=== PATIENT | male | born 1945 | race Caucasian/White ===

== ENCOUNTER 2017-11-24 10:06 | Observation (INO) | payer OTHER ==
[2017-11-24] MEDS ORDERED: Nitroglycerin 2% OINT* 1 GM PAK TOPICAL ONE (10:24)
[2017-11-24] MEDS ORDERED: Aspirin 81 mg CHEW TAB* 81 MG TAB.CHEW PO ONE (10:24)
[2017-11-24 10:57] LABS: ABS Basophils 0 10^3/ul (0-0.2); ABS Eosinophils 0.1 10^3/ul (0-0.6); ABS Lymphocytes 1.1 10^3/ul (1.0-4.8); ABS Monocytes 1.1 10^3/ul (0-0.8); ABS Neutrophils 5.6 10^3/ul (1.5-7.7); ABS Nucleated RBC 0 10^3/ul; Hematocrit 40 % (42-52); Hemoglobin 13.4 g/dl (14.0-18.0); Lymphocyte % 14.2 % (25-47); Mean Corpuscular HGB Conc 34 g/dl (31-36); Mean Corpuscular Hemoglobin 30 pg (27-31); Mean Corpuscular Volume 89 fL (80-94); Mean Platelet Volume 7.7 um3 (7.4-10.4); Nucleated Red Blood Cells % 0.2; Platelet Count 199 10^3/ul (150-450); Red Blood Count 4.45 10^6/ul (4.0-5.4); Red Cell Distribution Width 14 % (10.5-15); White Blood Count 7.9 10^3/ul (3.5-10.8)
[2017-11-24 11:14] LABS: INR 1.02 (0.77-1.02)
--- NOTE | 2017-11-24 11:26 | RAD ---
HISTORY: Chest pain COMPARISONS: None VIEWS: 1: frontal portable view of the chest at 10:40 AM FINDINGS: LINES AND TUBES: None. CARDIOMEDIASTINAL SILHOUETTE: The cardiac silhouette is mildly enlarged. The cardiomediastinal silhouette is otherwise normal for portable technique. PLEURA: The costophrenic angles are sharp. No pleural abnormalities are noted. LUNG PARENCHYMA: The lungs are clear. ABDOMEN: The upper abdomen is clear. There is no subphrenic gas. BONES AND SOFT TISSUES: The patient is status post median sternotomy. IMPRESSION: MILD CARDIOMEGALY. NO ACTIVE CARDIOPULMONARY DISEASE.
[2017-11-24] MEDS ORDERED: Perflutren Lipid Microsphere* 3 ML VIAL ONE (11:45)
[2017-11-24] MEDS ORDERED: Iodixanol* (CONTRAST) 320 MG/ML 100 ML SDV IV ONE (12:07)
[2017-11-24] MEDS ORDERED: oxyCODONE/Acetamin 5/325 MG* TAB PO ONE (12:41)
--- NOTE | 2017-11-24 12:50 | ECHO ---
Patient: KYLAH FOURNIER [facility] Rec#: [id number] : 1945 Date: 11/24/2017 Age: 72y Height: 170.18 cm / 67.0 in Weight: 90.72 kg / 199.9 lbs Sex: M BSA: 2.02 Room#: ED 15 Admit Date#: 11/24/2017 Type: Inpatient Referring: Alan Kramer Reading: Angela Calvillo MD Cartridge Loading Operator: Fransisca Giles RDCS,RDMS CC: Saurabh Chirinos MD Transthoracic Echocardiogram Indication: CP, SOB BP: 116/58 HR: 72 Rhythm: NSR Findings History: Recent CABG, CAD, PCI, DM Technical Comments: The study quality is fair. Left Ventricle: The left ventricular chamber size is normal. Mild concentric left ventricular hypertrophy is observed. The estimated ejection fraction is 55-60%. Short axis view with echo contrast shows mild relative hypokinesis at the base of the posterior/inferior wall. Ventricular septal wall motion has a post-operative appearance. Abnormal left ventricular diastolic filling is observed, consistent with impaired relaxation. Left Atrium: The left atrium is slightly dilated. Right Ventricle: The right ventricular cavity size is normal. The right ventricular global systolic function is mildly reduced. Right Atrium: The right atrium is slightly dilated. Aortic Valve: The aortic valve is trileaflet. Systolic excursion of the aortic valve is normal. There is a trace of aortic regurgitation. There is no evidence of aortic stenosis. Mitral Valve: The mitral valve leaflets appear normal. There is no evidence of mitral regurgitation. There is no evidence of mitral stenosis. Tricuspid Valve: The tricuspid valve leaflets are normal. There is trace tricuspid regurgitation. Unable to estimate the right ventricular systolic pressure. Pulmonic Valve: The pulmonic valve appears normal. There is a trace pulmonic regurgitation. Pericardium: There is no significant pericardial effusion. A pericardial fat pad is visualized. Aorta: The aortic root appears normal. There is no dilatation of the aortic arch. Pulmonary Artery: The main pulmonary artery appears normal. Venous: The inferior vena cava appears normal in size. There is a greater than 50% respiratory change in the inferior vena cava dimension. Contrast: Definity was used to optimize study. A total of 4 ml was used Conclusions Mild concentric left ventricular hypertrophy is observed. The estimated ejection fraction is 55-60%. Short axis view with echo contrast shows mild relative hypokinesis at the base of the posterior/inferior wall. Septum c/w prior CABG. Abnormal left ventricular diastolic filling is observed, consistent with impaired relaxation. The right ventricular global systolic function is mildly reduced. All valves show good function. There is no significant pericardial effusion. Prior echos not available for comparison. Measurements Name Value Normal Range RVIDd (AP) 2D 2.5 cm (0.9 - 2.6) RAd ISD 4CH 5.5 cm (3.4 - 4.9) RA (A4C)W 3.9 cm (2.9 - 4.6) IVSd (2D) 1.2 cm (0.6 - 1) LVPWd (2D) 1.3 cm (0.6 - 1) LVIDd (2D) 4.6 cm (3.6 - 5.4) LVIDs (2D) 3.1 cm - LV FS (2D) 33 % (25 - 45) Aortic Annulus 2 cm (1.4 - 2.6) Ao root diameter (2D) 3.4 cm (2.1 - 3.5) Ascending Ao 3.2 cm (2.1 - 3.4) Aortic arch 2.9 cm (1.8 - 3.4) LA dimension (AP) 2D 3.8 cm (2.3 - 3.8) LAd ISD 4CH 5.5 cm (2.9 - 5.3) LA ISD 4CH W 3.8 cm (2.5 - 4.5) Name Value Normal Range LA ESV SP 4CH (A/L) 56.2 ml - LA ESV SP 2CH (A/L) 76.82 ml - LA ESV BP (A/L) 68.99 ml - LA ESV BP (A/L) index 34 ml/m2 - LA ESV SP 4CH (MOD) 52.11 ml - LA ESV SP 2CH (MOD) 69.98 ml - Name Value Normal Range MV E-wave Vmax 0.7 m/sec - MV deceleration time 220 msec - MV A-wave Vmax 0.8 m/sec - MV E:A ratio 0.8 ratio - LV septal e' Vmax 0.05 m/sec - LV lateral e' Vmax 0.08 m/sec - LV E:e' septal ratio 14 ratio - LV E:e' lateral ratio 9 ratio - Name Value Normal Range AV Vmax 1.2 m/sec - AV VTI 24.4 cm - AV peak gradient 6 mmHg - AV mean gradient 3.4 mmHg - LVOT Vmax 0.8 m/sec - LVOT VTI 15.69 cm - LVOT peak gradient 2.7 mmHg - LVOT mean gradient 1.2 mmHg - ANN Vmax 0.6 m/sec - Name Value Normal Range RAP 8 mmHg - IVC diameter 1.8 cm - Name Value Normal Range PV Vmax 0.6 m/sec - PV peak gradient 1.4 mmHg -
--- NOTE | 2017-11-24 13:05 | RAD ---
STUDY: CT angiography of the chest, abdomen and pelvis. INDICATION: Sharp chest pain in a patient with a history of triple bypass surgery in September 2017. Relevant surgical history also includes hernia repair and "back surgery". COMPARISON: None. TECHNIQUE: Multidetector CT angiography of the chest, abdomen and pelvis were obtained from the lung apices to the ischial tuberosities after the intravenous injection of 100 mL Visipaque 320. Reformats were created in the coronal and sagittal planes. 3-D vascular imaging was created from the source images and reviewed as well. ANGIOGRAPHIC FINDINGS: Measured at the level of the right pulmonary artery, the ascending thoracic aorta measures 3.1 cm in diameter and the descending thoracic aorta measures 2.2 cm in diameter. The aorta does not exhibit any pathologic aneurysmal dilatation or signs of dissection. There is calcified atherosclerosis at the infrarenal abdominal aorta extending into the bilateral common iliac arteries. Incidentally noted at the arch of the aorta is a left vertebral artery that branches directly off of the arch. The anastomosis of the left internal mammary artery for the patient's coronary artery bypass graft appears to be patent at its proximal portion. More distally within the pericardium the bypass vessel appears to fill with contrast. There are no centrilobular filling defects of the central or proximal lobar pulmonary arteries to indicate large pulmonary embolus. This study is inadequate to densely discern filling defects in the more distal lobar and segmental pulmonary arterial branches. NON ANGIOGRAPHIC FINDINGS: Chest: There are hypoventilatory changes of the bilateral lung bases with linear densities consistent with atelectasis. There is trace pleural effusion at the bilateral dependent lower lobes. The lungs are otherwise clear. There is no mediastinal or hilar lymphadenopathy. The heart is grossly normal in appearance. Abdomen & Pelvis: The liver, spleen, pancreas and adrenal glands are grossly normal in appearance. The gallbladder is normal. Low-density foci in the kidneys are consistent with a benign cyst. Otherwise the kidneys are normal in appearance without focal mass, calcification or signs of hydronephrosis. The renal cortices enhance promptly and symmetrically on arterial phase imaging. Evaluation of the gastrointestinal tract is limited without oral contrast. The small and large bowel are not distended. The appendix is normal in appearance measuring 5 mm in diameter (axial image 208). There are distal colonic diverticula becoming more concentrated at the sigmoid colon without signs of acute inflammatory change characteristic of acute diverticulitis.. There is no gross retroperitoneal or mesenteric lymphadenopathy. There are small bilateral fat-containing inguinal hernias. Sternotomy wires are noted. Mild degenerative changes of the thoracic and lumbar spine includes loss of intervertebral disc height. Degenerative changes are most severe at L4/L5 where there is vacuum disc phenomenon. The patient appears to be status post laminectomy at the L3 and L4 levels. IMPRESSION: 1. No CT evidence of acute aortic pathology including pathologic aneurysmal or aortic dissection. 2. There are no centrilobular filling defects to indicate pulmonary embolism. 3. There are trace pleural effusions of doubtful clinical significance. 4. Diverticulosis without acute inflammatory changes consistent with diverticulitis. 5. Chronic, degenerative and postsurgical changes as described above including left internal mammary artery bypass graft surgery.
[2017-11-24] MEDS ORDERED: Ondansetron INJ* 2 MG/ML VIAL IV PRN (13:45)
[2017-11-24] MEDS ORDERED: Ibuprofen TAB* 600 MG PO PRN (13:45)
[2017-11-24] MEDS ORDERED: Ketorolac INJ* 30 MG/ML 1 ML VIAL IV PUSH ONE (13:45)
[2017-11-24] MEDS ORDERED: Dextrose 50% Syringe 50 ML* 25 GM/50 ML SYRINGE IV PUSH PRN (13:45)
[2017-11-24] MEDS ORDERED: Zolpidem TAB* 5 MG PO PRN (13:48)
[2017-11-24] MEDS: Colchicine* 0.6 MG TAB PO SCH ×2 (14:16→22:35)
--- NOTE | 2017-11-24 17:04 | ED ---
Lee Ann Beauchamp Julia, scribed for Alan Kramer on 11/24/17 at 1021 . HPI Chest Pain - HPI Summary HPI Summary: This patient is a year old M presenting to [facility] with a chief complaint of sharp mid-sternal chest pain radiating into the back since 10:30 last night. He reports a constant dull chest pain that is worsening by taking breaths that causes sharp pain to radiate into his neck. Patient reports nausea. Patient denies vomiting and dizziness. The patient rates the pain 6/10 in severity, but with movement or deep breath is 9/10. Patient had a recent bypass surgery in September 2017 at [facility]. He states he has not had any significant pain since the surgery. - History of Current Complaint Chief Complaint: EDChestPainROMI Time Seen by Provider: 11/24/17 10:13 Hx Obtained From: Patient Onset/Duration: Started Hours Ago, Still Present Time of Onset: 10:30 Timing: Constant Pain Intensity: 9 Pain Scale Used: 0-10 Numeric Chest Pain Location: Mid Sternal Chest Pain Radiates: Yes Chest Pain Radiates To:: Neck - with breaths Character: Other: - sharp Aggravating Factor(s): Movement, Deep Breaths Associated Signs and Symptoms: Positive: Chest Pain, Nausea. Negative: Dizziness, Vomiting Related History: Recent Trauma - recent surgery - Allergy/Home Medications Allergies/Adverse Reactions: Allergies Allergy/AdvReac Type Severity Reaction Status Date / Time Sulfa (Sulfonamide Allergy Rash Verified 11/24/17 10:52 Antibiotics) Home Medications: Home Medications Aspirin EC Low Dose* [Ecotrin EC Low Dose 81 MG*] 81 mg PO DAILY 11/24/17 [ History Confirmed 11/24/17] Atorvastatin* [Lipitor*] 80 mg PO DAILY 11/24/17 [History Confirmed 11/24/17] Clopidogrel TAB* [Plavix TAB*] 75 mg PO DAILY 11/24/17 [History Confirmed ] Finasteride TAB* [Proscar TAB*] 5 mg PO DAILY 11/24/17 [History Confirmed ] Metoprolol Tartrate TAB* [Lopressor TAB*] 25 mg PO BID 11/24/17 [History Confirmed 11/24/17] Multivitamins/Minerals TAB* [Theragran/minerals TAB*] 1 tab PO DAILY 11/24/17 [ History Confirmed 11/24/17] Oxybutynin TAB* [Ditropan TAB*] 5 mg PO DAILY 11/24/17 [History Confirmed ] Pantoprazole TAB (NF) [Protonix TAB (NF)] 40 mg PO DAILY 11/24/17 [History Confirmed 11/24/17] Saxagliptin HCl (Nf) [Onglyza (NF)] 2.5 mg PO DAILY 11/24/17 [History Confirmed 11/24/17] Zolpidem TAB* [Ambien TAB*] 5 mg PO BEDTIME PRN 11/24/17 [History Confirmed ] PMH/Surg Hx/FS Hx/Imm Hx Endocrine/Hematology History: Reports: Hx Diabetes Cardiovascular History: Reports: Hx Coronary Artery Disease - Surgical History Surgery Procedure, Year, and Place: bypass surgery, September 2017, [facility] Infectious Disease History: No Infectious Disease History: Denies: Traveled Outside the [place] in Last 30 Days - Social History Lives: With Family Hx Tobacco Use: No Smoking Status (MU): Never Smoked Tobacco Review of Systems Positive: Chest Pain Positive: Nausea. Negative: Vomiting Neurological: Negative - dizziness All Other Systems Reviewed And Are Negative: Yes Physical Exam - Summary Physical Exam Summary: Appearance: Well appearing, no pain distress Skin: warm, dry, reflects adequate perfusion Head/face: normal Eyes: EOMI, MARION ENT: normal Neck: supple, non-tender Respiratory: CTA, breath sounds present Cardiovascular: RRR, pulses symmetrical Abdomen: non-tender, soft Bowel: present Musculoskeletal: strength/ROM intact, l chest tenderness Neuro: normal, sensory motor intact, A&Ox3 Triage Information Reviewed: Yes Vital Signs On Initial Exam: Initial Vitals Temp Pulse Resp BP Pulse Ox 97.0 F 75 20 123/73 100 11/24/17 10:07 11/24/17 10:07 11/24/17 10:07 11/24/17 10:07 11/24/17 10:07 Vital Signs Reviewed: Yes Diagnostics - Vital Signs Vital Signs Temp Pulse Resp BP Pulse Ox 11/24/17 10:07 97.0 F 75 20 123/73 100 - Laboratory Lab Results: Lab Results 11/24/17 11/24/17 11/24/17 Range/Units 10:30 10:30 10:30 WBC 7.9 (3.5-10.8) 10^3/ul RBC 4.45 (4.0-5.4) 10^6/ul Hgb 13.4 L (14.0-18.0) g/dl Hct 40 L (42-52) % MCV 89 (80-94) fL MCH 30 (27-31) pg MCHC 34 (31-36) g/dl RDW 14 (10.5-15) % Plt Count 199 (150-450) 10^3/ul MPV 7.7 (7.4-10.4) um3 Neut % (Auto) 70.8 (38-83) % Lymph % (Auto) 14.2 L (25-47) % [place] % (Auto) 13.4 H (0-7) % Eos % (Auto) 1.0 (0-6) % Baso % (Auto) 0.6 (0-2) % Absolute Neuts (auto) 5.6 (1.5-7.7) 10^3/ul Absolute Lymphs (auto) 1.1 (1.0-4.8) 10^3/ul Absolute Monos (auto) 1.1 H (0-0.8) 10^3/ul Absolute Eos (auto) 0.1 (0-0.6) 10^3/ul Absolute Basos (auto) 0 (0-0.2) 10^3/ul Absolute Nucleated RBC 0 10^3/ul Nucleated RBC % 0.2 ESR 14 (0-40) mm/Hr INR (Anticoag Therapy) 1.02 (0.77-1.02) APTT 21.7 L (26.0-36.3) seconds Sodium (139-145) mmol/L Potassium (3.5-5.0) mmol/L Chloride (101-111) mmol/L Carbon Dioxide (22-32) mmol/L Anion Gap (2-11) mmol/L BUN (6-24) mg/dL Creatinine (0.67-1.17) mg/dL Est GFR ( Amer) (>60) Est GFR (Non-Af Amer) (>60) BUN/Creatinine Ratio (8-20) Glucose (70-100) mg/dL Lactic Acid (0.5-2.0) mmol/L Calcium (8.6-10.3) mg/dL Total Bilirubin (0.2-1.0) mg/dL AST (13-39) U/L ALT (7-52) U/L Alkaline Phosphatase (34-104) U/L Troponin I (<0.04) ng/mL C-Reactive Protein (< 5.00) mg/L B-Natriuretic Peptide 152 H ( - 100) pg/mL Total Protein (6.4-8.9) g/dL Albumin (3.2-5.2) g/dL Globulin (2-4) g/dL Albumin/Globulin Ratio (1-3) 11/24/17 11/24/17 Range/Units 10:30 10:30 WBC (3.5-10.8) 10^3/ul RBC (4.0-5.4) 10^6/ul Hgb (14.0-18.0) g/dl Hct (42-52) % MCV (80-94) fL MCH (27-31) pg MCHC (31-36) g/dl RDW (10.5-15) % Plt Count (150-450) 10^3/ul MPV (7.4-10.4) um3 Neut % (Auto) (38-83) % Lymph % (Auto) (25-47) % [place] % (Auto) (0-7) % Eos % (Auto) (0-6) % Baso % (Auto) (0-2) % Absolute Neuts (auto) (1.5-7.7) 10^3/ul Absolute Lymphs (auto) (1.0-4.8) 10^3/ul Absolute Monos (auto) (0-0.8) 10^3/ul Absolute Eos (auto) (0-0.6) 10^3/ul Absolute Basos (auto) (0-0.2) 10^3/ul Absolute Nucleated RBC 10^3/ul Nucleated RBC % ESR (0-40) mm/Hr INR (Anticoag Therapy) (0.77-1.02) APTT (26.0-36.3) seconds Sodium 138 L (139-145) mmol/L Potassium 4.0 (3.5-5.0) mmol/L Chloride 103 (101-111) mmol/L Carbon Dioxide 25 (22-32) mmol/L Anion Gap 10 (2-11) mmol/L BUN 11 (6-24) mg/dL Creatinine 0.74 (0.67-1.17) mg/dL Est GFR ( Amer) 133.7 (>60) Est GFR (Non-Af Amer) 104.0 (>60) BUN/Creatinine Ratio 14.9 (8-20) Glucose 152 H (70-100) mg/dL Lactic Acid 1.1 (0.5-2.0) mmol/L Calcium 9.4 (8.6-10.3) mg/dL Total Bilirubin 0.90 (0.2-1.0) mg/dL AST 12 L (13-39) U/L ALT 13 (7-52) U/L Alkaline Phosphatase 72 (34-104) U/L Troponin I 0.00 (<0.04) ng/mL C-Reactive Protein 26.83 H (< 5.00) mg/L B-Natriuretic Peptide ( - 100) pg/mL Total Protein 7.0 (6.4-8.9) g/dL Albumin 4.3 (3.2-5.2) g/dL Globulin 2.7 (2-4) g/dL Albumin/Globulin Ratio 1.6 (1-3) Result Diagrams: 11/24/17 10:30 11/24/17 10:30 Lab Statement: Any lab studies that have been ordered have been reviewed, and results considered in the medical decision making process. - Radiology CXR Radiology Interpretation Completed By: Radiologist - MILD CARDIOMEGALY. NO ACTIVE CARDIOPULMONARY DISEASE. ED Physician has reviewed this report. - CT Chest/A/P CT Interpretation Completed By: Radiologist - 1. No CT evidence of acute aortic pathology including pathologic aneurysmal or aortic dissection. 2. There are no centrilobular filling defects to indicate pulmonary embolism. 3. There are trace pleural effusions of doubtful clinical significance. 4. Diverticulosis without acute inflammatory changes consistent with diverticulitis. 5. Chronic, degenerative and postsurgical changes as described above including left internal mammary artery bypass graft surgery. ED Physician has reviewed this report. - EKG 1026 Cardiac Rate: NL - at 73 BPM EKG Rhythm: Sinus Rhythm EKG Interpretation: no acute changes - Additional Comments Diagnostic Additional Comments: An echo reveals: Mild concentric left ventricular hypertrophy is observed.The estimated ejection fraction is 55-60%. Short axis view with echo contrast shows mild relative hypokinesis at the base of the posterior/inferior wall. Septum c/w prior CABG. Abnormal left ventricular diastolic filling is observed, consistent with impaired relaxation. The right ventricular global systolic function is mildly reduced. All valves show good function.There is no significant pericardial effusion. Prior echos not available for comparison. ED Physician has reviewed this report. Re-Evaluation - Re-Evaluation 1 Re-Evaluation Time: 11:17 Comment: Patient informed of further testing. Chest Pain Course/Dx - Course Course Of Treatment: Pt presents with sharp mid-sternal chest pain radiating into the back since 10:30 last night. He reports a constant dull chest pain that is worsening by taking breaths that causes sharp pain to radiate into his neck. Pt had bypass surgery in September. A EKG is unremarable. A CXR reveals mild cardiomegaly, but no active disease. A Chest/A/P CT reveals trace pleural effusions and diverticulitis. Bloodwork is obtained. Patient is given ASA, Nitro, Percocet, and Protonix. Dr. Calvillo recomends orderin an echo, revealing LVH and an ejection fraction of 55-60%. Dr. Spain agrees to admit this patient. - Chest Pain Differential Diagnosis/HQI/PQRI: Acute IN, ACS, Angina, Chest Wall, Lower Respiratory Infection, Pulmonary Edema, Pulmonary Embolism, Other: - DISSECTION AORTA - Diagnoses Provider Diagnoses: Chest pain, CAD (coronary artery disease), Status post coronary artery bypass graft, Myles's syndrome - Provider Notifications Discussed Care Of Patient With: Angela Calvillo - fly tier Time Discussed With Above Provider: 11:00 Instructed by Provider To: Other - recommends ordering an echo and ESR - Critical Care Time Critical Care Time: 30-74 min Discharge - Sign-Out/Discharge Documenting (check all that apply): Discharge - admit - Discharge Plan Condition: Critical Disposition: ADMITTED TO [facility] - Billing Disposition and Condition Condition: CRITICAL Disposition: [facility] [place] Consult Consult: At 11:00, Dr Calvillo, fly tier, recommends ordering and EST and echo. At 13:10, Dr. Spain, hospitalist agrees to admit. The documentation as recorded by the Lee Ann alexanderErin accurately reflects the service I personally performed and the decisions made by me, Alan Kramer.
--- NOTE | 2017-11-24 17:06 | HP ---
CC: Dr. Chirinos * HISTORY AND PHYSICAL: DATE OF ADMISSION: 11/24/17 PRIMARY CARE PROVIDER: Dr. Chirinos. ATTENDING PHYSICIAN WHILE IN THE HOSPITAL: Becky Spain DO * (report dictated by Kye Carias NP) CHIEF COMPLAINT: Chest pain. HISTORY OF PRESENT ILLNESS: Mr. Jenkins is a 72-year-old male patient. He carries a history of CAD, diabetes, history of hypertension, hyperlipidemia, peptic ulcer disease. He comes into the ED today. He states about 5 weeks ago he had open heart surgery. He states that he had been doing well until the last 36 to 48 hours. He has been having worsening chest discomfort. He was initially feeling weak and drowsy, fatigued yesterday, just was not feeling the best. He got concerned because the last night he started having chest discomfort described as a sharp stabbing pain lasting 30 to 40 seconds intermittent in the left side and occasionally in the right side. He states the pain persisted, when he got up to do his activities this morning, he noticed he was having discomfort. It was worse when he took a deep breath. It was sharp, stabbing. He states when he lied down it was worse, if he sat up it was a little bit better. He denied any fevers, chills. No recent URI symptoms. No nausea, vomiting or diarrhea. He denied feeling short of breath with the exception that it really hurts to take a deep breath. He was concerned and called his PCP, who referred him into the ER because of his recent cardiac surgery. He states that he received Percocet here in the ED. He is feeling a little bit better, but he states it still hurts when he takes a deep breath and he states that his chest does feel a little tender. He came into the ED, was evaluated by Dr. Kramer. We were asked to evaluate because of the chest pain. PAST MEDICAL HISTORY: Significant for: 1. CAD. 2. Diabetes. 3. Hypertension. 4. Hyperlipidemia. 5. Peptic ulcer disease. PAST SURGICAL HISTORY: 1. The patient has had triple bypass. 2. Heart catheterization x2. 3. Right knee arthroscopy. 4. Left total knee replacement. 5. He has had left wrist surgery. 6. He has had back surgery. 7. He has had a hernia repair. 8. He has had 3 surgeries to his right ear. 9. He has also had a right arm forearm surgery. HOME MEDICATIONS: Include: 1. Multivitamin 1 tablet daily. 2. Plavix 75 mg daily. 3. Ambien 5 mg at bedtime as needed. 4. Lopressor 25 mg p.o. b.i.d. 5. Proscar 5 mg daily. 6. Lipitor 80 mg daily. 7. Onglyza 2.5 mg p.o. daily. 8. Protonix 40 mg daily. 9. Ditropan 5 mg daily. 10. Aspirin 81 mg daily. ALLERGIES TO MEDICATIONS: Include SULFA DRUGS. FAMILY HISTORY: His mother had an [place]. Father at the age of 57. Father was paralyzed. He also has 3 sisters with heart disease. SOCIAL HISTORY: He does not smoke. He drinks occasionally. Surrogate decision maker is his . REVIEW OF SYSTEMS: There is no documented fever. He denied having any significant weight change. There was no double vision. He denies having any ear discharge. There is no rhinorrhea. There is no sore throat. No thyroid enlargement. There is chest pain per my HPI. There is no orthopnea, no nocturnal dyspnea. There is no abdominal pain. There was no nausea, no vomiting. No dysuria, no frequency. No seizure. No loss of consciousness, no pruritus, and no skin ulcerations. Review of 14 systems completed, all others negative. PHYSICAL EXAMINATION GENERAL: At this time, Mr. Jenkins is a 72-year-old male patient. He is sitting in the ED stretcher. He does not appear to be in any acute distress. He appears to be well nourished, well developed. VITAL SIGNS: Blood pressure 114/60, pulse 71, respirations 18, O2 saturation 96 %, temperature 97.2. HEENT: Head: Atraumatic, normocephalic. Eyes: EOMs intact. Sclerae anicteric, not pale. Throat: Oral mucosa appears to be moist. No oropharyngeal erythema. NECK: Supple. LUNGS: Clear to auscultation bilaterally. No wheezes, rales or rhonchi. HEART: Sounds S1, S2. Regular rate and rhythm. No murmurs, rubs or gallops. ABDOMEN: Soft, flat, nontender. Bowel sounds were present. EXTREMITIES: Pulses were 2+ throughout. He is moving all 4 extremities with 5/ 5 strength. NEUROLOGIC: The patient is awake. He is alert. He is oriented x3. His tongue is midline. [place] were equal. No gross focal deficits. SKIN: Grossly intact. DIAGNOSTIC STUDIES/LAB DATA: The labs revealed a WBC of 7.9, RBC of 4.45, hemoglobin 13.4, hematocrit of 40, platelet count 199,000. INR was 1.02, PTT was 21.7. Sodium 138, potassium 4, chloride 103, bicarb 25, BUN 11, creatinine 0.74, glucose 152, lactate 1.1, calcium 9.4, total bilirubin 0.9, AST 12, ALT 13 , alk phos 72, troponin 0, CRP was 26, albumin of 4.3. The patient did have a chest x-ray obtained today, showed mild cardiomegaly. No active cardiopulmonary disease. There was a transthoracic echocardiogram, showed EF of 55% to 60%, no significant pericardial effusion. All valves show good function. He had a chest, abdomen, and pelvis CTA, impression: No CT evidence of acute aortic pathology including pathologic, aneurysmal or aortic dissection. No central lobar filling defects to indicate PE. Trace pleural effusions with little clinical significance, diverticulosis without acute inflammatory change. Did have an EKG, which showed a heart rate of 73. He had T-wave flattening in V4, [address] elevations were noted. He had a flattening in leads 1 and aVL as well. Old medical records were reviewed. ASSESSMENT AND PLAN: Mr. Jenkins is a 72-year-old male patient coming into the emergency department today. He complains of chest discomfort. He was evaluated in the ED. There was concern for the chest pain. We were asked to evaluate for admission. He will be admitted under observation status for: 1. Chest pain. Pain is atypical for cardiac in nature. It is worse with lying flat. He states that it gets better when he sits up and it is reproducible. 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 I am going to give him actually a dose of Toradol down here p.o. and ibuprofen cautiously with the history of peptic ulcer disease. He is on a PPI and I am going to start him on colchicine twice a day. Cycle his troponins and I will continue to follow him clinically. We will place him on telemetry for the time being. 2. Coronary artery disease. He is on aspirin, statin and beta-brian. We will continue this. 3. Diabetes. We will put him on lispro sliding scale. 4. Hypertension. Continue meds as prescribed. 5. Hyperlipidemia. Continue his meds as prescribed. He is on statin. 6. Peptic ulcer disease. Continue the patient's PPI therapy. 7. DVT prophylaxis: I am just going to put him on SCDs. Because of the concern for possible pericarditis, I do not want him on the subcu heparin for the time being. 8. Fluids, electrolytes, and nutrition. He can have a consistent carb diet. 9. Code status: He is a full code. TIME SPENT: Time spent on the admission was 60 minutes, greater than half time spent [id number] with the patient obtaining my history and physical, other half time spent going over the plan of care with patient and implementing the plan of care. I did discuss the plan of care with my attending, Dr. Spain, she is in agreement. KYE CARIAS, [employer] [id number]/[facility] #: [id number] KAYLIE
[2017-11-24] MEDS: Insulin LISPRO* 1 UNITS UNIT SUBCUT SCH (22:35)
[2017-11-24] MEDS: Metoprolol Tartrate TAB* 25 MG PO SCH (22:35)
[2017-11-24] MEDS: Acetaminophen TAB* 325 MG PO PRN (22:36)
[2017-11-25 05:45] LABS: ABS Basophils 0 10^3/ul (0-0.2); ABS Eosinophils 0.1 10^3/ul (0-0.6); ABS Lymphocytes 1.5 10^3/ul (1.0-4.8); ABS Monocytes 0.9 10^3/ul (0-0.8); ABS Neutrophils 3.4 10^3/ul (1.5-7.7); ABS Nucleated RBC 0 10^3/ul; Eosinophil % 2.4 % (0-6); Hematocrit 36 % (42-52); Hemoglobin 12.6 g/dl (14.0-18.0); Lymphocyte % 25.6 % (25-47); Mean Corpuscular HGB Conc 35 g/dl (31-36); Mean Corpuscular Hemoglobin 31 pg (27-31); Mean Corpuscular Volume 88 fL (80-94); Mean Platelet Volume 7.8 um3 (7.4-10.4); Nucleated Red Blood Cells % 0.1; Platelet Count 193 10^3/ul (150-450); Red Blood Count 4.09 10^6/ul (4.0-5.4); Red Cell Distribution Width 14 % (10.5-15)
[2017-11-25 06:06] LABS: EGFR Non-African American 85.1 (>60)
[2017-11-25] MEDS: Acetaminophen TAB* 325 MG PO PRN (06:10)
[2017-11-25] MEDS ORDERED: Clopidogrel TAB* 75 MG PO SCH (09:00)
[2017-11-25] MEDS ORDERED: Finasteride TAB* 5 MG PO SCH (09:00)
[2017-11-25] MEDS ORDERED: Aspirin EC TAB* 81 MG TAB.EC PO SCH (09:00)
[2017-11-25] MEDS ORDERED: Atorvastatin* 80 MG TAB PO SCH (09:00)
[2017-11-25] MEDS ORDERED: CMC:Pantoprazole TAB (NF) 40 MG TAB PO SCH (09:00)
[2017-11-25] MEDS ORDERED: Oxybutynin TAB* 5 MG PO SCH (09:00)
[2017-11-25] MEDS: Insulin LISPRO* 1 UNITS UNIT SUBCUT SCH ×2 (09:57→12:47)
[2017-11-25] MEDS: Metoprolol Tartrate TAB* 25 MG PO SCH (09:57)
[2017-11-25] MEDS: Colchicine* 0.6 MG TAB PO SCH (10:24)
[2017-11-25 12:24] VITALS: BP 127/62
--- NOTE | 2017-11-26 14:45 | DS ---
DISCHARGE SUMMARY: DATE OF ADMISSION: 11/24/17 DATE OF DISCHARGE: 11/25/17 ADMITTING PROVIDER: Kye Carias NP ATTENDING PHYSICIAN: Deny Dior MD CHIEF COMPLAINT: Sharp stabbing chest pain. 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 HISTORY OF PRESENT ILLNESS: Soto Jenkins is a 72-year-old male with past medical history of CAD, status post 2 stents and then on 10/14/17 status post triple vessel CABG in [place], [place] ([facility] with Dr. Rodas), non- insulin-dependent diabetes mellitus, hypertension, hyperlipidemia, peptic ulcer disease, who has been doing well from his open heart surgery until the day prior to admission when he was feeling weaker and drowsy, then had sharp stabbing chest discomfort the night prior to admission lasting 30 to 40 seconds in the left side, occasionally in the right side. He went to bed and it returned in the morning, seemed to be worse with deep breathing and worse with lying down and when leaning forward in the seated position. He called his PCP, Dr. Chirinos, of the [place] and also talked to his [id number] who is a physician and went to the emergency room. There he had chest x-ray which showed no active disease, a transthoracic echocardiogram showed preserved ejection fraction of 55% to 60%, no significant pericardial effusion. No significant valvular dysfunction. Some evidence of diastolic dysfunction. There was some mild relative hypokinesis at the base of the posterior inferior wall consistent with prior CABG. There was no prior echo for comparison. He had a CT angiogram of the chest, abdomen and pelvis, which demonstrated no evidence of acute aortic pathology, including no aneurysm or dissection and there was no centrilobular filling defects to indicate a pulmonary embolism. There was trace pleural effusions of doubtful clinical significance. There was diverticulosis without acute inflammatory changes consistent with diverticulitis. There was chronic degenerative postural changes corresponding to his CABG surgery and vein grafting. He had troponins that were negative x3 at 0.00, 0.00 and 0.00. He was started on colchicine and p.r.n. ibuprofen with concern for Myles syndrome given the timing and symptoms. He had an EKG which demonstrated some ST elevations in lead 3, 1 mm flat or biphasic T-waves in the V1 through V3 and aVL, poor R-wave progression. The patient had improvement in the symptoms, although did still occasionally have sharp pain. He was discharged with recommended followup with his manager msw, who he thinks is named Bay, but he is not sure of that, along with Dr. Chirinos. Given his history of remote peptic ulcer disease, caution was advised with the initiation of ibuprofen and should be stopped if signs of abdominal pain, melena or hematochezia develop. He had a BNP of 152, his blood glucoses were elevated in the low 200 range and he had a A1c that was added on, which was 6.5. DISCHARGE MEDICATIONS: Include: 1. Colchicine 0.6 mg p.o. b.i.d. for 30 days (the first 3 days were given via the [id number] program as it will take some time for the [place] system to get shipment to [place]). 2. Atorvastatin 80 mg p.o. daily. 3. Aspirin 81 mg p.o. daily. 4. Plavix 75 mg p.o. daily. 5. Finasteride 5 mg p.o. daily. 6. Ibuprofen 600 mg p.o. q. 8 hours t.i.d. for 1 week, b.i.d. for the next week and finally once daily for the third week. 7. Metoprolol tartrate 25 mg p.o. b.i.d. 8. Multivitamin with mineral tab 1 tab p.o. daily. 9. Oxybutynin 5 mg p.o. daily. 10. Pantoprazole 40 mg p.o. daily. 11. Saxagliptin 2.5 mg p.o. daily. 12. Zolpidem 5 mg p.o. q.h.s. p.r.n. DISCHARGE DIET: Heart healthy, carbohydrate consistent. FOLLOWUP: Please follow up with Dr. Saurabh Chirinos within 5 days of discharge and his manager msw who he believes is named Dr. Hermosillo within 2 weeks of discharge. TIME SPENT: 35 minutes. [id number]/[facility] #: [id number] MTDD
== END 2017-11-25 15:17 | disposition home or self-care (01) ==
LOC: ED 10:06 → MEDTELE 13:43
PROVIDERS: ADMIT Hospitalist; ATTEND Internal Medicine
DX: R07.9 Chest pain, unspecified (principal); I24.1 Dressler's syndrome; I25.10 Atherosclerotic heart disease of native coronary artery without angina pectoris; Z95.5 Presence of coronary angioplasty implant and graft; Z95.1 Presence of aortocoronary bypass graft; E11.9 Type 2 diabetes mellitus without complications; I10 Essential (primary) hypertension; E78.5 Hyperlipidemia, unspecified; K27.9 Peptic ulcer, site unspecified, unspecified as acute or chronic, without hemorrhage or perforation; Z79.01 Long term (current) use of anticoagulants; Z79.899 Other long term (current) drug therapy; Z88.2 Allergy status to sulfonamides; R94.31 Abnormal electrocardiogram [ECG] [EKG]; R06.02 Shortness of breath
CPT/HCPCS: 36415; 71045; 71275; 74174; 80048; 80053; 83036; 83605; 83880; 84484; 85025; 85610; 85652; 85730; 86140; 93005; 93306; 96374; 99291; 99292; A9270-GY; C8929; G0378; J1885; Q9967